=== PATIENT | female | born 1990 | race Caucasian/White ===

== ENCOUNTER 2018-12-18 11:54 | Outpatient (CLI) | payer BC ==
[~2018-12-18] VITALS: Ht 157.5 cm; Wt 74.0 kg
== END 2018-12-18 14:11 | disposition home or self-care (01) ==
LOC: LDOP 11:54
PROVIDERS: ATTEND Student in an Organized Health Care Education/Training Program
DX: O26.893 Other specified pregnancy related conditions, third trimester (principal); R10.9 Unspecified abdominal pain; Z3A.39 39 weeks gestation of pregnancy
CPT/HCPCS: 59025; 81001; 82570; 84156; 87086; 99211; G0463

== ENCOUNTER 2018-12-24 05:17 | Inpatient (IN) | payer BC ==
[~2018-12-24] VITALS: Ht 157.5 cm; Wt 74.1 kg
[2018-12-24] MEDS ORDERED: OXYTOCIN 30U/ 0.9% NaCL 500ML 500 ML ONE ×2 (05:48→06:13)
[2018-12-24] MEDS ORDERED: NEWBORN KIT ONE (05:48)
[2018-12-24] MEDS ORDERED: LACTATED RINGERS 1,000 ML IVBOLUS ONE (06:00)
[2018-12-24] MEDS ORDERED: SODIUM CITRATE/CITRIC ACID 15 ML UDC PO ONE (06:00)
[2018-12-24] MEDS ORDERED: METOCLOPRAMIDE 5 MG/ML, 2ML IV ONE (06:00)
[2018-12-24] MEDS ORDERED: METOCLOPRAMIDE 5 MG/ML, 2ML ONE (06:13)
[2018-12-24] MEDS ORDERED: SODIUM CITRATE/CITRIC ACID 15 ML UDC ONE (06:13)
[2018-12-24 06:14] LABS: BASOPHILS # (AUTO) 0.03 x10^3/uL (0-0.1); BASOPHILS % (AUTO) 0 % (0-1); EOSINOPHILS # (AUTO) 0.14 x10^3/uL (0-0.4); EOSINOPHILS % (AUTO) 2 % (1-7); LYMPHOCYTES # (AUTO) 1.79 x10^3/uL (1-3.4); LYMPHOCYTES % (AUTO) 20 % (22-44); MD NO; MEAN CORPUSCULAR HEMOGLOBIN 31.2 pg (27.0-34.8); MEAN CORPUSCULAR HGB CONC 33.7 g/dL (32.4-35.8); MEAN CORPUSCULAR VOLUME 92.7 fL (80-100); MEAN PLATELET VOLUME 8.1 fL (7.4-10.4); MONOCYTES # (AUTO) 0.61 x10^3/uL (0.2-0.8); MONOCYTES % (AUTO) 7 % (2-9); NEUTROPHILS # (AUTO) 6.42 x10^3/uL (1.8-6.8); NEUTROPHILS % (AUTO) 71 % (42-75); PLATELET COUNT 173 x10^3/uL (130-400); RED CELL DISTRIBUTION WIDTH 14.4 % (9.6-15.2)
[2018-12-24] MEDS ORDERED: CEFAZOLIN 1,000 MG ONE (07:05)
[2018-12-24] MEDS ORDERED: EPHEDRINE 50 MG/ML, 1ML ONE (07:05)
[2018-12-24] MEDS ORDERED: OXYTOCIN 10 UNITS/ML, 1ML ONE (07:06)
[2018-12-24] MEDS ORDERED: EPINEPHRINE 1 MG/ML, 1ML ONE (07:06)
[2018-12-24] MEDS ORDERED: ONDANSETRON ODT 8 MG PO PRN (07:30)
[2018-12-24] MEDS ORDERED: ONDANSETRON 2MG/ML, 2ML IV PRN (07:30)
[2018-12-24] MEDS ORDERED: OXYcodone 5 MG/5 ML ORAL.SOL UDC PO PRN (07:30)
[2018-12-24] MEDS ORDERED: MORPHINE SULFATE 4 MG/ML, 1ML IVPush PRN (07:30)
[2018-12-24] MEDS ORDERED: MEPERIDINE/PF 25MG/0.5ML IVPush PRN (07:30)
[2018-12-24] MEDS ORDERED: EPHEDRINE 50 MG/ML, 1ML IVPush PRN (07:30)
[2018-12-24] MEDS ORDERED: MIDAZOLAM 1 MG/ML, 2ML IV PRN (07:30)
[2018-12-24] MEDS: LACTATED RINGERS 1,000 ML IV SCH ×4 (09:22→19:22)
[2018-12-24] MEDS ORDERED: METOCLOPRAMIDE 5 MG/ML, 2ML IV PRN (09:30)
[2018-12-24] MEDS ORDERED: ACETAMINOPHEN 325 MG TABLET PO PRN (09:30)
[2018-12-24] MEDS ORDERED: BISACODYL 10 MG SUPP PR PRN (09:30)
[2018-12-24] MEDS ORDERED: MISOPROSTOL 200 MCG TABLET PR PRN (09:30)
[2018-12-24] MEDS ORDERED: CARBOPROST TROMETHAMINE 250 MCG/ML, 1ML IM PRN (09:30)
[2018-12-24] MEDS ORDERED: GLYCERIN ADULT SUPP PR PRN (09:30)
[2018-12-24] MEDS ORDERED: METHYLERGONOVINE 0.2 MG/ML IM PRN (09:30)
[2018-12-24] MEDS ORDERED: CALCIUM CARBONATE 500 MG TAB.CHEW PO PRN (09:30)
[2018-12-24] MEDS ORDERED: SERT50TA PO (09:57)
[2018-12-24] MEDS ORDERED: PREN1TAB10 PO (09:57)
[2018-12-24] MEDS: OXYTOCIN 30U/ 0.9% NaCL 500ML 500 ML IV SCH ×2 (10:00→19:22)
[2018-12-24] MEDS ORDERED: OXYcodone/APAP 5/325MG TABLET ONE (10:26)
[2018-12-24] MEDS: OXYcodone/APAP 5/325MG TABLET PO PRN ×5 (10:27→22:37)
[2018-12-24] MEDS ORDERED: MORPHINE SULFATE 4 MG/ML, 1ML ONE (11:15)
[2018-12-24 12:33] VITALS: BP 113/63
[2018-12-24] MEDS: ONDANSETRON 2MG/ML, 2ML IV PRN (13:30)
[2018-12-24] MEDS: KETOROLAC 30 MG/1 ML IV SCH ×2 (14:28→20:39)
[2018-12-24 16:00] VITALS: BP 97/60
[2018-12-24 16:39] LABS: BASOPHILS # (AUTO) 0.02 x10^3/uL (0-0.1); BASOPHILS % (AUTO) 0 % (0-1); EOSINOPHILS % (AUTO) 0 % (1-7); LYMPHOCYTES # (AUTO) 1.53 x10^3/uL (1-3.4); LYMPHOCYTES % (AUTO) 11 % (22-44); MD NO; MEAN CORPUSCULAR HEMOGLOBIN 31.6 pg (27.0-34.8); MEAN CORPUSCULAR HGB CONC 33.5 g/dL (32.4-35.8); MEAN CORPUSCULAR VOLUME 94.3 fL (80-100); MONOCYTES # (AUTO) 0.67 x10^3/uL (0.2-0.8); MONOCYTES % (AUTO) 5 % (2-9); NEUTROPHILS # (AUTO) 11.53 x10^3/uL (1.8-6.8); NEUTROPHILS % (AUTO) 84 % (42-75); PLATELET COUNT 169 x10^3/uL (130-400); RED BLOOD COUNT 3.69 x10^6/uL (3.82-5.3); RED CELL DISTRIBUTION WIDTH 14.2 % (9.6-15.2)
[2018-12-24 19:40] VITALS: BP 105/65
[2018-12-24] MEDS: DOCUSATE 100 MG CAPSULE PO PRN (20:39)
[2018-12-24] MEDS: SIMETHICONE 80 MG CHEW TAB PO PRN (21:01)
[2018-12-25] MEDS: OXYcodone/APAP 5/325MG TABLET PO PRN ×5 (00:28→20:42)
[2018-12-25 00:34] VITALS: BP 123/80
[2018-12-25] MEDS: LACTATED RINGERS 1,000 ML IV SCH ×5 (01:22→17:22)
[2018-12-25] MEDS: KETOROLAC 30 MG/1 ML IV SCH ×4 (02:31→20:41)
[2018-12-25] MEDS: SIMETHICONE 80 MG CHEW TAB PO PRN ×3 (02:31→20:41)
[2018-12-25 04:45] VITALS: BP 108/67
[2018-12-25] MEDS: OXYTOCIN 30U/ 0.9% NaCL 500ML 500 ML IV SCH ×2 (05:22→15:22)
[2018-12-25 08:00] VITALS: BP 115/72
[2018-12-25] MEDS: PRENATAL VIT/IRON/FA 1 EACH TABLET PO SCH (08:38)
[2018-12-25] MEDS: DOCUSATE 100 MG CAPSULE PO PRN ×2 (08:38→20:41)
[2018-12-25] MEDS: ONDANSETRON 2MG/ML, 2ML IV PRN (10:27)
[2018-12-25 19:30] VITALS: BP 96/61
[2018-12-26] MEDS: OXYTOCIN 30U/ 0.9% NaCL 500ML 500 ML IV SCH ×3 (01:22→21:22)
[2018-12-26] MEDS: LACTATED RINGERS 1,000 ML IV SCH ×6 (01:22→21:22)
[2018-12-26] MEDS: KETOROLAC 30 MG/1 ML IV SCH ×2 (02:30→05:08)
[2018-12-26] MEDS: OXYcodone/APAP 5/325MG TABLET PO PRN (03:31)
[2018-12-26 08:40] VITALS: BP 99/60
[2018-12-26] MEDS: PRENATAL VIT/IRON/FA 1 EACH TABLET PO SCH (09:00)
[2018-12-26] MEDS: IBUPROFEN 600 MG TABLET PO PRN ×2 (12:26→18:36)
[2018-12-26] MEDS ORDERED: ONDANSETRON 4 MG TABLET PO PRN (12:30)
[2018-12-26 20:00] VITALS: BP 126/78
[2018-12-27] MEDS: IBUPROFEN 600 MG TABLET PO PRN ×2 (00:42→08:26)
[2018-12-27] MEDS: LACTATED RINGERS 1,000 ML IV SCH ×3 (01:22→09:22)
[2018-12-27] MEDS: OXYTOCIN 30U/ 0.9% NaCL 500ML 500 ML IV SCH (07:22)
[2018-12-27 07:40] VITALS: BP 112/72
[2018-12-27] MEDS: DOCUSATE 100 MG CAPSULE PO PRN (08:26)
[2018-12-27] MEDS: PRENATAL VIT/IRON/FA 1 EACH TABLET PO SCH (08:27)
[2018-12-27] MEDS ORDERED: OXYC-302 PO (12:21)
[2018-12-27] MEDS ORDERED: IBUP-1222 PO (12:21)
== END 2018-12-27 12:50 | disposition home or self-care (01) | DRG 788 ==
LOC: LDIP 05:17 → 2NE 11:24 → 2NW 11:25
PROVIDERS: ADMIT Student in an Organized Health Care Education/Training Program; ATTEND Student in an Organized Health Care Education/Training Program
PROC: 10D00Z1 Extraction of Products of Conception, Low, Open Approach (ICD-10-PCS; principal; 2018-12-24)
DX: O34.211 Maternal care for low transverse scar from previous cesarean delivery (principal); G89.18 Other acute postprocedural pain; O99.344 Other mental disorders complicating childbirth; F32.9 Major depressive disorder, single episode, unspecified; F41.9 Anxiety disorder, unspecified; Z3A.39 39 weeks gestation of pregnancy; Z37.0 Single live birth
CPT/HCPCS: 36415; 85025; 86850; 86900; G0378; J0171; J0690; J1885; J2405; C1765; J2590; J2765; J7120